=== PATIENT | female | born 1930 | race Caucasian/White ===

== ENCOUNTER 2018-05-04 14:54 | Emergency (ER) | payer MEDICARE, OTHER ==
[~2018-05-04] VITALS: Ht 152.4 cm; Wt 53.1 kg
[~2018-05-04 14:54] MED LIST: ATOR20 PO; FURO40 PO; METO25 PO; POTCHL20ER PO; WARF1 PO
[2018-05-04 15:49] LABS: BASOPHILS ABSOLUTE AUTO 0.03 K/mm3 (0.00-0.23); BASOPHILS PERCENT AUTO 0 % (0-2); EOSINOPHILS ABSOLUTE AUTO 0.17 K/mm3 (0.00-0.68); EOSINOPHILS PERCENT AUTO 3 % (0-6); Hematocrit 37.3 % (33.0-51.0); Hemoglobin 11.2 g/dL (11.5-16.0); IMMATURE GRAN ABSOLUTE AUTO 0.01 K/mm3 (0.00-0.10); IMMATURE GRAN PERCENT AUTO 0 % (0-1); LYMPHOCYTES ABSOLUTE AUTO 0.98 K/mm3 (0.84-5.20); LYMPHOCYTES PERCENT AUTO 14 % (21-46); MONOCYTES ABSOLUTE AUTO 0.59 K/mm3 (0.16-1.47); MONOCYTES PERCENT AUTO 9 % (4-13); Mean Corpuscular Volume 100 fL (80-100); Mean Platelet Volume 10.6 fL (9.1-12.4); NEUTROPHILS ABSOLUTE AUTO 5.02 K/mm3 (1.96-9.15); NEUTROPHILS PERCENT AUTO 74 % (41-73); Platelet Count 207 K/mm3 (150-400); Red Blood Cell Count 3.73 M/mm3 (3.80-5.20)
[2018-05-04 16:03] LABS: Albumin, Blood 3.5 g/dL (3.4-5.0); Bilirubin, Total 0.4 mg/dL (0.1-1.0); Bun/Creatinine Ratio 38.8 (12.0-20.0); Calcium, Blood 9.8 mg/dL (8.5-10.1); Creatinine, Blood 1.47 mg/dL (0.40-1.00); Globulin, Blood 3.6 g/dL (2.2-4.0); Potassium, Blood 3.7 mmol/L (3.5-5.5); Total Protein, Blood 7.1 g/dL (6.4-8.2)
[2018-05-04 19:36] LABS: Source, Urine Clean Catch
[2018-05-04 19:44] LABS: Bilirubin, Urine Neg (Neg); Blood, Urine 1+ (Neg); Glucose Qualitative, Urine Neg (Neg); Ketones, Urine Neg (Neg); Leukocyte Esterase, Urine Neg (Neg); Nitrite, Urine Neg (Neg); Protein, Urine Neg (Neg); Urobilinogen, Urine NORM (Normal); pH, Urine 6.5 (5.0-8.0)
[2018-05-04 19:55] LABS: Appearance, Urine Clear (Clear); Bacteria Mod /hpf; Color, Urine Yellow (P-Yellow); Red Blood Cells, Urine 0-2 /hpf (0-2); White Blood Cells, Urine 0-2 /hpf (0-5)
[2018-05-04 19:56] LABS: Hyaline Casts 0-2 /lpf (0-2); Squamous Epithelial Cells Rare /hpf (Few)
[2018-05-04 20:39] LABS: Free Thyroxine 1.12 ng/dL (0.70-1.60)
[2018-05-04 20:41] LABS: Thyroid Stimulating Hormone 2.56 uIU/mL (0.360-4.800)
== END 2018-05-04 22:22 | disposition home or self-care (01) ==
LOC: ER 14:54
PROVIDERS: Emergency Medicine; Physician Assistant
DX: E86.0 Dehydration (principal); R53.1 Weakness; I10 Essential (primary) hypertension; J44.9 Chronic obstructive pulmonary disease, unspecified; Z79.899 Other long term (current) drug therapy
CPT/HCPCS: 36415; 71046; 80053; 81001; 83880; 84439; 84443; 85025; 93005; 93010; 96360; 99284-25; J7030

== ENCOUNTER 2018-12-13 06:45 | Emergency (ER) | payer MEDICARE, OTHER ==
[~2018-12-13] VITALS: Ht 149.9 cm; Wt 57.6 kg
[~2018-12-13 06:45] MED LIST changes: +ASCO500 PO; +CHOL10002; +THERA1 EACH PO
[2018-12-13 07:30] LABS: BASOPHILS ABSOLUTE AUTO 0.03 K/mm3 (0.00-0.23); BASOPHILS PERCENT AUTO 0 % (0-2); EOSINOPHILS ABSOLUTE AUTO 0.19 K/mm3 (0.00-0.68); EOSINOPHILS PERCENT AUTO 2 % (0-6); Hematocrit 30.9 % (33.0-51.0); Hemoglobin 9.5 g/dL (11.5-16.0); IMMATURE GRAN ABSOLUTE AUTO 0.04 K/mm3 (0.00-0.10); IMMATURE GRAN PERCENT AUTO 0 % (0-1); LYMPHOCYTES ABSOLUTE AUTO 0.55 K/mm3 (0.84-5.20); LYMPHOCYTES PERCENT AUTO 6 % (21-46); MONOCYTES ABSOLUTE AUTO 0.62 K/mm3 (0.16-1.47); MONOCYTES PERCENT AUTO 6 % (4-13); Mean Corpuscular HGB 30.5 pg (26.0-34.0); Mean Corpuscular HGB Conc 30.7 g/dL (31.5-36.5); Mean Corpuscular Volume 99 fL (80-100); Mean Platelet Volume 10.4 fL (9.1-12.4); NEUTROPHILS PERCENT AUTO 85 % (41-73); Platelet Count 200 K/mm3 (150-400); RDW Coefficient Variation 15.1 % (11.7-14.2); RDW Standard Deviation 54.1 fL (35.1-46.3); Red Blood Cell Count 3.11 M/mm3 (3.80-5.20); White Blood Cell Count 9.63 K/mm3 (4.00-11.30)
[2018-12-13 07:50] LABS: Alanine Aminotransfer (ALT/SGP 37 U/L (12-78); Albumin/Globulin Ratio 0.9 (0.8-1.8); Alk Phos 122 U/L (50-136); Anion Gap 6 mmol/L (6-16); Aspartate Aminotrans (AST/SGOT 38 U/L (12-37); Bilirubin, Total 0.3 mg/dL (0.1-1.0); Blood Urea Nitrogen 47 mg/dL (8-24); Bun/Creatinine Ratio 30.3 (12.0-20.0); CO2, Blood 33 mmol/L (21-32); Chloride, Blood 104 mmol/L (98-108); Creatinine, Blood 1.55 mg/dL (0.40-1.00); Globulin, Blood 3.3 g/dL (2.2-4.0); Glomerular Filtration Rate 33 (60-); Glucose, Blood 76 mg/dL (70-99); Potassium, Blood 3.6 mmol/L (3.5-5.5); Sodium, Blood 143 mmol/L (136-145); Total Protein, Blood 6.3 g/dL (6.4-8.2); Troponin I <0.015 ng/mL (0.000-0.040)
[2018-12-13] MEDS ORDERED: ALLO100 (08:07)
[2018-12-13] MEDS ORDERED: COLCHICINE0.6 MG PO (08:07)
[2018-12-13] MEDS ORDERED: TRAZ50 PO (08:07)
[2018-12-13] MEDS ORDERED: CHLO25B PO (08:08)
[2018-12-13] MEDS ORDERED: TRIANEX430 GM (08:08)
[2018-12-13] MEDS ORDERED: ALBU90OI (08:17)
[2018-12-13] MEDS ORDERED: Lasix20 MG PO (13:46)
== END 2018-12-13 14:03 | disposition home or self-care (01) ==
LOC: ER 06:45
PROVIDERS: Emergency Medicine
DX: R07.81 Pleurodynia (principal); J44.9 Chronic obstructive pulmonary disease, unspecified; I50.9 Heart failure, unspecified; E04.1 Nontoxic single thyroid nodule; Z88.2 Allergy status to sulfonamides; Z91.048 Other nonmedicinal substance allergy status; Z79.899 Other long term (current) drug therapy; I10 Essential (primary) hypertension
CPT/HCPCS: 71046; 71260; 80053; 83880; 84484; 85025; 85379; 93005; 93010; 96361; 96374-59; 96375-59; 99285-25; J1940; J2405; J3010; J7030; Q9967

== ENCOUNTER 2018-12-21 20:38 | Inpatient (IN) | payer OTHER, MEDICARE ==
[~2018-12-21] VITALS: Ht 149.9 cm; Wt 54.9 kg
[~2018-12-21 20:38] MED LIST changes: +ALBU90OI; +ALLO100; +CHLO25B PO; +COLCHICINE0.6 MG PO; +Lasix20 MG PO; +TRAZ50 PO; +TRIANEX430 GM
[2018-12-21 21:02] LABS: BASOPHILS ABSOLUTE AUTO 0.04 K/mm3 (0.00-0.23); BASOPHILS PERCENT AUTO 0 % (0-2); EOSINOPHILS ABSOLUTE AUTO 0.17 K/mm3 (0.00-0.68); EOSINOPHILS PERCENT AUTO 2 % (0-6); Hematocrit 33.3 % (33.0-51.0); Hemoglobin 10.2 g/dL (11.5-16.0); IMMATURE GRAN ABSOLUTE AUTO 0.04 K/mm3 (0.00-0.10); IMMATURE GRAN PERCENT AUTO 0 % (0-1); LYMPHOCYTES ABSOLUTE AUTO 0.93 K/mm3 (0.84-5.20); LYMPHOCYTES PERCENT AUTO 9 % (21-46); MONOCYTES PERCENT AUTO 7 % (4-13); Mean Corpuscular HGB 30.2 pg (26.0-34.0); Mean Corpuscular HGB Conc 30.6 g/dL (31.5-36.5); Mean Corpuscular Volume 99 fL (80-100); Mean Platelet Volume 10.5 fL (9.1-12.4); NEUTROPHILS ABSOLUTE AUTO 8.99 K/mm3 (1.96-9.15); NEUTROPHILS PERCENT AUTO 82 % (41-73); Platelet Count 304 K/mm3 (150-400); RDW Coefficient Variation 14.7 % (11.7-14.2); RDW Standard Deviation 53.6 fL (35.1-46.3); Red Blood Cell Count 3.38 M/mm3 (3.80-5.20); White Blood Cell Count 10.97 K/mm3 (4.00-11.30)
[2018-12-21 21:20] LABS: Alanine Aminotransfer (ALT/SGP 27 U/L (12-78); Albumin, Blood 2.7 g/dL (3.4-5.0); Albumin/Globulin Ratio 0.6 (0.8-1.8); Alk Phos 123 U/L (50-136); Anion Gap 7 mmol/L (6-16); Aspartate Aminotrans (AST/SGOT 24 U/L (12-37); Bilirubin, Total 0.3 mg/dL (0.1-1.0); Blood Urea Nitrogen 61 mg/dL (8-24); CO2, Blood 41 mmol/L (21-32); Calcium, Blood 9.7 mg/dL (8.5-10.1); Chloride, Blood 94 mmol/L (98-108); Creatinine, Blood 1.85 mg/dL (0.40-1.00); Globulin, Blood 4.3 g/dL (2.2-4.0); Glomerular Filtration Rate 27 (60-); Glucose, Blood 148 mg/dL (70-99); Potassium, Blood 3.2 mmol/L (3.5-5.5); Sodium, Blood 142 mmol/L (136-145); Troponin I <0.015 ng/mL (0.000-0.040)
[2018-12-22 05:09] LABS: BASOPHILS ABSOLUTE AUTO 0.04 K/mm3 (0.00-0.23); BASOPHILS PERCENT AUTO 0 % (0-2); EOSINOPHILS ABSOLUTE AUTO 0.22 K/mm3 (0.00-0.68); EOSINOPHILS PERCENT AUTO 2 % (0-6); Hematocrit 31.5 % (33.0-51.0); Hemoglobin 9.5 g/dL (11.5-16.0); IMMATURE GRAN ABSOLUTE AUTO 0.04 K/mm3 (0.00-0.10); IMMATURE GRAN PERCENT AUTO 0 % (0-1); LYMPHOCYTES ABSOLUTE AUTO 0.97 K/mm3 (0.84-5.20); LYMPHOCYTES PERCENT AUTO 11 % (21-46); MONOCYTES ABSOLUTE AUTO 0.73 K/mm3 (0.16-1.47); MONOCYTES PERCENT AUTO 8 % (4-13); Mean Corpuscular HGB 29.6 pg (26.0-34.0); Mean Corpuscular HGB Conc 30.2 g/dL (31.5-36.5); Mean Corpuscular Volume 98 fL (80-100); Mean Platelet Volume 10.4 fL (9.1-12.4); NEUTROPHILS ABSOLUTE AUTO 7.25 K/mm3 (1.96-9.15); NEUTROPHILS PERCENT AUTO 78 % (41-73); Platelet Count 288 K/mm3 (150-400); RDW Coefficient Variation 14.8 % (11.7-14.2); RDW Standard Deviation 53.7 fL (35.1-46.3); Red Blood Cell Count 3.21 M/mm3 (3.80-5.20); White Blood Cell Count 9.25 K/mm3 (4.00-11.30)
--- NOTE | 2018-12-22 05:40 | NUR ---
SHIFT SUMMARY PATIENT ALERT AND ORIENTED. SHE IS ON 3 LITERS OF OXYGEN VIA NASAL CANULA, WHICH IS BASELINE FOR HER AT HOME. SHE IS ABLE TO GET TO THE COMMODE WITH MINIMAL ASSISTANCE FROM ONE PERSON WITH A GAIT BELT. IV IN HER RIGHT AC IS PATENT AND INFUSING. TELE SHOWS HER TO BE IN AFIB. SHE HAS NO COMPLAINTS OF PAIN AND IS CURRENTLY RESTING IN HER BED. BED IN LOWEST POSITION WITH WHEELS LOCKED. CALL LIGHT WITHIN REACH. REPORT GIVEN TO ONCOMING RN.
[2018-12-22 05:42] LABS: Bun/Creatinine Ratio 33.1 (12.0-20.0); Calcium, Blood 9.5 mg/dL (8.5-10.1); Creatinine, Blood 1.78 mg/dL (0.40-1.00); Potassium, Blood 3.2 mmol/L (3.5-5.5)
--- NOTE | 2018-12-22 16:02 | NUR ---
SHIFT SUMMARY PT RESTING QUIETLY DURING SHIFT REPORT. PT BLIND, BUT ABLE TO HEAR WELL AND FOLLOW INSTRUCTIONS. ABLE TO USE CALL LT APPROP. PT ADMITTED FOR AFIB WITH HX OF CHF. LASIX GIVEN THIS AM. PER REPORT, PT C/O SOB UPON ADMISSION. PT ON 3L NC BASELINE; BIOX 100%. GI CONSULT CALLED PER ORDERS; RECENT ABNORMAL CT WITH CONCERN FOR NEOPLASM. DR YUN HERE TO SEE PT A COUPLE OF TIMES TODAY. PT TO HAVE UPPER ENDO TOMORROW AT 1200. PT TO HAVE CL FOR BREAKFAST AND THEN BE NPO FOR ENDO. CALLED DAUGHTER, SHIN TO GIVE UPDATE, PER PT REQUEST. PT IS 1P SBA TO BSC. NO C/O PAIN. LUNGS T/O WITH COARSE RHONCHI AND EXP WHEEZES. PT RESTING QUIETLY AT THIS TIME. REPORT GIVEN TO ENZO MELÉNDEZ TO COVER REMAINING SHIFT.
--- NOTE | 2018-12-22 17:13 | NUR ---
Spiritual Care inital note: This morning, it was reported to me by one of the spiritual care volunteers that Mrs. Soliman stated she felt "ready to " and wished she could just 'go." She also told our volunteer that her dtr was putting her spouse (pt's OLAMIDE) on hospice today. I visited Mrs. Soliman this evening. She appears quite weak and reports feeling "very tired." She tells me that this morning, "I was just overwhelmed" and she no longer wishes she could "go." Mrs. Soliman is very concerned about her dtr and asked me to pray for her. I provided prayer for the pt and family. Mrs. Soliman was too tired for conversation. I will attempt rehab/pre vocational counselor/emotiona; support in coming days.
--- NOTE | 2018-12-22 19:12 | NUR ---
SHIFT SUMMARY: NO ACUTE CHANGES TO REPORT THIS SHIFT. PT A&O; BLIND; CALM AND COOPERATIVE WITH CARE. PT HX CHF; NEW DIAGNOSIS OF A-FIB; TELE IN PLACE; A-FIBcPVCs @ 82 PER ASSISTANT CREDIT MANAGER THIS SHIFT. O2 @ 3L; PT USES 3L @ HOME. PT SCHEDULED FOR UPPER ENDO 12/23 IN AM; NPO AFTER BREAKFAST. REPORT GIVEN TO ONCOMING RN.
--- NOTE | 2018-12-23 04:36 | NUR ---
SHIFT SUMMARY PATIENT HAD NO ACUTE CHANGES OBSERVED. AXO AND ONE ASSIST TO BSC. PATIENT IS BLIND AND ABLE TO USE THE CALL LIGHT. VSS/AFEBRILE. DENIES PAIN, SOB, AND N/V. PIV REMAINS INTACT. PLANISHER REPORTS A-FIB 79. ON 3L O2 NC BASELINE. NPO AFTER BREAKFAST FOR UPPER ENDO. COOPERATIVE WITH CARE. CALL LIGHT IN REACH. BED IN LOWEST POSITION. WILL CONTINUE TO MONITOR UNTIL DAY SHIFT NURSE ASSUMES CARE.
[2018-12-23 05:54] LABS: Bun/Creatinine Ratio 33.5 (12.0-20.0); Calcium, Blood 9.6 mg/dL (8.5-10.1); Creatinine, Blood 1.7 mg/dL (0.40-1.00); Potassium, Blood 3.9 mmol/L (3.5-5.5)
--- NOTE | 2018-12-23 17:17 | NUR ---
PT TRANSPORTED TO [facility] VIA STRETCHER.
--- NOTE | 2018-12-23 17:26 | NUR ---
History, Chart, Medications and Allergies reviewed before start of procedure. LS DIMINISHED ON 3L NC, CLEAR OTHERWISE. Patient confirms NPO status and agrees with scheduled surgery. Pre-Op teaching done. Pt verbalizes understanding.
--- NOTE | 2018-12-23 17:33 | NUR ---
12/23/18 5866 Jf Fontaine History, Chart, Medications and Allergies reviewed before start of procedure.MONITOR INTACT WITH CONTINUOUS PULSE OXIMETRY AND INTERMITTENT BP.3-LEAD EKG REVIEWED WITH PHYSICIAN PRIOR TO START OF PROCEDURE.O2 VIA N/C INTACT THROUGHOUT SEDATION/PROCEDURE. See Anesthesia record.
--- NOTE | 2018-12-23 19:45 | NUR ---
PATIENT RESTING IN BED, STATES SHE IS VERY TIRED SINCE HER ENDO SCOPE THIS AFTERNOON. REPORTS SCRATCHY THROAT FROM IT. DENIES ANY PAIN OR DISCOMFORT. LUNG SOUNDS DIMINISHED THROUGHOUT, COUGH JUST DRY AT THIS TIME, DENIES ANY CARDIAC PROBLEMS. TELE IN PLACE. ASSESSMENT COMPLETED SEE CHART. CALL LIGHT IN REACH.
[2018-12-24 04:55] LABS: BASOPHILS ABSOLUTE AUTO 0.05 K/mm3 (0.00-0.23); BASOPHILS PERCENT AUTO 1 % (0-2); EOSINOPHILS ABSOLUTE AUTO 0.22 K/mm3 (0.00-0.68); EOSINOPHILS PERCENT AUTO 3 % (0-6); Hematocrit 33.1 % (33.0-51.0); Hemoglobin 9.8 g/dL (11.5-16.0); IMMATURE GRAN ABSOLUTE AUTO 0.04 K/mm3 (0.00-0.10); IMMATURE GRAN PERCENT AUTO 1 % (0-1); LYMPHOCYTES ABSOLUTE AUTO 0.69 K/mm3 (0.84-5.20); LYMPHOCYTES PERCENT AUTO 9 % (21-46); MONOCYTES ABSOLUTE AUTO 0.65 K/mm3 (0.16-1.47); MONOCYTES PERCENT AUTO 8 % (4-13); Mean Corpuscular HGB 29.2 pg (26.0-34.0); Mean Corpuscular HGB Conc 29.6 g/dL (31.5-36.5); Mean Corpuscular Volume 99 fL (80-100); Mean Platelet Volume 10.3 fL (9.1-12.4); NEUTROPHILS ABSOLUTE AUTO 6.24 K/mm3 (1.96-9.15); NEUTROPHILS PERCENT AUTO 79 % (41-73); Platelet Count 320 K/mm3 (150-400); RDW Coefficient Variation 14.6 % (11.7-14.2); RDW Standard Deviation 53.1 fL (35.1-46.3); Red Blood Cell Count 3.36 M/mm3 (3.80-5.20); White Blood Cell Count 7.89 K/mm3 (4.00-11.30)
[2018-12-24 05:22] LABS: Bun/Creatinine Ratio 31.9 (12.0-20.0); Calcium, Blood 9.6 mg/dL (8.5-10.1); Creatinine, Blood 1.66 mg/dL (0.40-1.00); Potassium, Blood 3.7 mmol/L (3.5-5.5)
--- NOTE | 2018-12-24 05:57 | NUR ---
SHIFT SUMMARY: 88 Y/O FEMALE ADMITTED FOR AFIB. WAS VERY FATIQUED AFTER HER ENDOSCOPE. SHE SLEPT THROUGHOUT THE NIGHT AWAKENING WITH VERBAL STIMULI. DENIED ANY PAIN OR DISCOMFORT. TELE REPORTS REMAINED IN AFIB AROUND THE 70-80'S. VS WNL. NO ACUTE CHANGES WERE NOTED. CALL LIGHT REMAINED WITH IN REACH. WILL REPORT TO DAY SHIFT RN.
[2018-12-24] MEDS ORDERED: PANT20 PO (13:25)
--- NOTE | 2018-12-24 13:46 | NUR ---
DISCHARGE DISCAHRGE MEDICATIONS AND INSTRUCTIONS EXPLAINED TO PATIENT AND PATIENT'S DAUGHTER. THEY STATED UNDERSTANDING. FOLLOW UP APPOINTMENT SCHEDULED WITH PCP. IV REMOVED WITHOUT DIFFICULTY. BELONGINGS WITH PATIENT. PATIENT TRANSFERED TO PRIVATE VEHICLE VIA WHEELCHAIR. PATIENT'S DAUGHTER TRANSPORTING HER.
== END 2018-12-24 13:45 | disposition home or self-care (01) | DRG 308 ==
LOC: ER 20:38 → MEDS 20:39 → ENPENDDIS 12-24 12:46 → MEDS 12-24 13:45
PROVIDERS: Emergency Medicine; Hospitalist; Nurse Practitioner Acute Care; Student in an Organized Health Care Education/Training Program; ADMIT Family Medicine
PROC: 0DD48ZX Extraction of Esophagogastric Junction, Via Natural or Artificial Opening Endoscopic, Diagnostic (ICD-10-PCS; 2018-12-23)
PROC: 0DD38ZX Extraction of Lower Esophagus, Via Natural or Artificial Opening Endoscopic, Diagnostic (ICD-10-PCS; principal; 2018-12-23 08:45)
DX: I48.91 Unspecified atrial fibrillation (principal); J96.21 Acute and chronic respiratory failure with hypoxia; N18.4 Chronic kidney disease, stage 4 (severe); Z99.81 Dependence on supplemental oxygen; I08.3 Combined rheumatic disorders of mitral, aortic and tricuspid valves; Z86.718 Personal history of other venous thrombosis and embolism; E87.6 Hypokalemia; H54.7 Unspecified visual loss; H35.52 Pigmentary retinal dystrophy; I12.9 Hypertensive chronic kidney disease with stage 1 through stage 4 chronic kidney disease, or unspecified chronic kidney disease; J43.2 Centrilobular emphysema; K44.9 Diaphragmatic hernia without obstruction or gangrene; E06.9 Thyroiditis, unspecified; K21.9 Gastro-esophageal reflux disease without esophagitis; Z87.891 Personal history of nicotine dependence
CPT/HCPCS: 36415; 71045; 80048; 80053; 83520; 83880; 84145; 84443; 84484; 85025; 88305; 88312; 92610; 93005; 93010; 94640; 94760; 96361; 96374; 96375; 97110; 97162; 97165; 97530; 97535; 99285-25; C9113; G0378; J1650; J1940; J2704; J3480; J7050; J7120